=== PATIENT | male | born 1970 | race Caucasian/White ===

== ENCOUNTER 2024-03-29 12:36 | Inpatient (IN) | payer OTHER ==
[2024-03-29 14:05] VITALS: BMI 20.9
[2024-03-29] MEDS ORDERED: BISMUTH SUBSALICYLATE 262 MG/15 ML BTL PO PRN (15:08)
[2024-03-29] MEDS ORDERED: IBUPROFEN 400 MG TABLET (FP) PO PRN (15:08)
[2024-03-29] MEDS ORDERED: MAGNESIUM HYDROX 2400MG/30ML ORAL SUSPENSION 30 ML CUP PO PRN (15:08)
[2024-03-29] MEDS ORDERED: DICYCLOMINE HCL 10 MG CAPSULE PO PRN (15:08)
[2024-03-29] MEDS ORDERED: LOPERAMIDE HCL 2 MG CAPSULE PO PRN (15:08)
[2024-03-29] MEDS ORDERED: MAG HYDROX/AL HYDROX/SIMETH 30 ML UNIT-DOSE CUP PO PRN (15:08)
[2024-03-29] MEDS ORDERED: POLYETHYLENE GLYCOL (HEALTHYLAX) 3350 17 GM PACKET PO PRN (15:08)
[2024-03-29] MEDS ORDERED: BENZONATATE 200 MG CAPSULE PO PRN (15:08)
[2024-03-29] MEDS ORDERED: NALOXONE HCL (KLOXXADO) 8 MG SPRAY NS PRN (15:08)
[2024-03-29] MEDS ORDERED: NALOXONE HCL 0.4 MG/ML VIAL IM PRN (15:08)
[2024-03-29] MEDS ORDERED: BENZOCAINE/MENTHOL (CHLORASEPTIC ) LOZENGE MM PRN (15:08)
[2024-03-29] MEDS ORDERED: ONDANSETRON *ODT* 4 MG TABLET SL PRN (15:08)
[2024-03-29] MEDS ORDERED: guaiFENesin 600 MG TABLET.ER (FP) PO PRN (15:08)
[2024-03-29] MEDS ORDERED: IBUPROFEN 600 MG TABLET (FP) PO ONE (15:30)
[2024-03-29] MEDS: IBUPROFEN 600 MG TABLET (FP) PO PRN (15:32)
[2024-03-29] MEDS: PRENATAL VITAMINS W/ FOLIC ACID TABLET (FP) PO SCH (15:33)
[2024-03-29] MEDS ORDERED: PRENATAL VITAMINS W/ FOLIC ACID TABLET (FP) PO ONE (15:33)
[2024-03-29] MEDS ORDERED: methaDONE HCL 10 MG TABLET (FOR DETOX USE ONLY) ONE (16:07)
[2024-03-29] MEDS: methaDONE HCL 10 MG TABLET (FOR DETOX USE ONLY) PO ONE (16:10)
[2024-03-29] MEDS: cloNIDine HCL 0.1 MG TABLET PO SCH (17:50)
[2024-03-29] MEDS ORDERED: CLINDAMYCIN HCL 150 MG CAPSULE (FP) PO SCH (22:00)
[2024-03-29] MEDS: CLINDAMYCIN HCL 150 MG CAPSULE (FP) PO SCH (22:41)
[2024-03-29] MEDS: BUPRENORPHINE/NALOXONE 0.5 MG/0.125 MG FILM SL ONE (22:44)
[2024-03-29] MEDS: MELATONIN 5 MG TABLETS PO SCH (22:44)
[2024-03-29] MEDS: THIAMINE 100 MG TABLET PO SCH (22:44)
[2024-03-30] MEDS ORDERED: methaDONE HCL 10 MG TABLET PO ONE ×2 (09:57→14:00)
[2024-03-30] MEDS ORDERED: BUPRENORPHINE/NALOXONE 0.5 MG/0.125 MG FILM SL SCH (10:00)
[2024-03-30] MEDS: METHOCARBAMOL 500 MG TABLET PO PRN (10:17)
[2024-03-30 11:51] LABS: CHLORIDE 104 mmol/L (98-107); SODIUM 140 mmol/L (136-145)
[2024-03-30 11:55] LABS: HEMATOCRIT 36.3 % (35.4-49); HEMOGLOBIN 12.8 GM/dL (11.7-16.9); MCH 31.2 pg (25.7-33.7); MCHC 35.3 g/dl (32.0-35.9); MEAN CELL VOLUME 88.5 fl (80-96); MEAN PLT VOLUME 7.4 fl (7.5-11.1); PLATELET COUNT 359 10^3/uL (134-434); RBC 4.11 M/mm3 (4.00-5.60); RDW 13.9 % (11.9-15.9); WHITE BLOOD COUNT 6.3 K/mm3 (4.0-10.0)
[2024-03-30 11:59] LABS: ALBUMIN 3.1 g/dl (3.4-5.0); ANION GAP 5 mmol/L (4-13); CALCIUM 8.5 mg/dL (8.5-10.1); CO2 31 mmol/L (21-32); SGOT/AST 13 U/L (15-37)
[2024-03-30 12:01] LABS: GLUCOSE,RANDOM 101 mg/dL (74-106)
[2024-03-30 12:03] LABS: CREATININE 0.7 mg/dL (0.55-1.3); SGPT/ALT 18 U/L (13-61)
[2024-03-30 12:04] LABS: BILIRUBIN,TOTAL 0.6 mg/dL (0.2-1)
[2024-03-30 12:05] LABS: TOT PROT 6.1 g/dl (6.4-8.2)
[2024-03-30 12:06] LABS: ALK PHOS 81 U/L (45-117)
[2024-03-30 12:52] LABS: HIV INTERPRETATION NEGATIVE (NEGATIVE)
[2024-03-30] MEDS: hydrOXYzine PAMOATE 25 MG CAPSULE (FP) PO PRN (18:26)
[2024-03-30] MEDS: diazePAM 5 MG TABLET PO PRN (19:37)
[2024-03-31] MEDS: methaDONE 40 MG, methaDONE 30 MG PO SCH (05:37)
[2024-03-31] MEDS ORDERED: methaDONE HCL 10 MG TABLET PO SCH (06:00)
[2024-03-31] MEDS ORDERED: methaDONE HCL 10 MG TABLET (FOR DETOX USE ONLY) PO ONE (10:00)
[2024-03-31] MEDS ORDERED: BUPRENORPHINE/NALOXONE 2 MG/0.5 MG FILM PACKET SL SCH (10:00)
[2024-03-31] MEDS: methaDONE HCL 10 MG TABLET PO ONE (10:38)
[2024-03-31] MEDS: ACETAMINOPHEN 325 MG TABLET (FP) PO PRN (20:52)
[2024-04-01] MEDS ORDERED: methaDONE HCL 10 MG TABLET PO ONE (10:00)
[2024-04-01] MEDS ORDERED: BUPRENORPHINE/NALOXONE 4 MG/1 MG FILM PACKET SL SCH (10:00)
[2024-04-01 17:19] VITALS: RESP 17; TEMP 98.6
[2024-04-01 18:33] VITALS: BP 142/83; PULSE 63
[2024-04-02] MEDS ORDERED: BUPRENORPHINE/NALOXONE 8 MG/2 MG FILM PACKET SL SCH (10:00)
[2024-04-02] MEDS ORDERED: methaDONE HCL 10 MG TABLET PO ONE (10:00)
[2024-04-02] MEDS ORDERED: methaDONE HCL 10 MG TABLET (FOR DETOX USE ONLY) PO ONE (10:00)
[2024-04-03] MEDS ORDERED: BUPRENORPHINE/NALOXONE 8 MG/2 MG FILM PACKET SL SCH (10:00)
== END 2024-04-01 19:35 | disposition left against medical advice (07) | DRG 770 ==
LOC: YASAS 12:36 → Y6N 15:47
PROVIDERS: ADMIT Allergy & Immunology; ATTEND Surgery
PROC: HZ2ZZZZ Detoxification Services for Substance Abuse Treatment (ICD-10-PCS; principal; 2024-03-29)
DX: F11.23 Opioid dependence with withdrawal (principal); F14.20 Cocaine dependence, uncomplicated; F13.20 Sedative, hypnotic or anxiolytic dependence, uncomplicated; F41.9 Anxiety disorder, unspecified; L03.116 Cellulitis of left lower limb; Z87.891 Personal history of nicotine dependence; Z59.00 Homelessness unspecified
CPT/HCPCS: 36415; 80053; 80305; 80307; 85027; 86780; 86803; 87389; 93005; 93010